=== PATIENT | female | born 1960 | race Caucasian/White ===

== ENCOUNTER 2017-05-05 08:23 | Outpatient (CLI) | payer OTHER ==
[~2017-05-05 08:23] MED LIST: ASPI-955; CHOL2000 PO; LEVO75TA7 PO; MULT-1074 PO; OMEG1CAP2; PROG100C16 PO; [UNRECOGNIZED DRUG - OTHER] PO
[2017-05-05] MEDS ORDERED: ROSU5TAB PO (09:10)
[2017-05-05 10:35] LABS: ALANINE AMINOTRANSFERASE 68 U/L (12-78); ALBUMIN 3.6 G/DL (3.4-5.0); ALBUMIN/GLOBULIN RATIO 1.2 (1.1-1.5); ALKALINE PHOSPHATASE 42 IU/L (46-116); ASPARTATE AMINO TRANSFERASE 32 U/L (10-37); BILIRUBIN,DIRECT 0.1 MG/DL (0-0.3); BILIRUBIN,TOTAL 0.3 MG/DL (0.1-1.0); CHOL/HDL RATIO 2.6 (0.00-4.99); CHOLESTEROL 126 MG/DL (0-200); HDL CHOLESTEROL 48 MG/DL (35-60); LDL CHOLESTEROL 69 MG/DL (50-100); TOTAL PROTEIN 6.5 G/DL (6.4-8.2); TRIGLYCERIDES 54 MG/DL (20-135)
== END 2017-05-05 23:59 | disposition home or self-care (01) ==
LOC: LAB 08:23
PROVIDERS: ATTEND Family Medicine
DX: E78.5 Hyperlipidemia, unspecified (principal); I10 Essential (primary) hypertension; F17.200 Nicotine dependence, unspecified, uncomplicated
CPT/HCPCS: 36415; 80061; 80076

== ENCOUNTER 2017-05-05 08:31 | Day surgery (SDC) | payer OTHER ==
[~2017-05-05] VITALS: Ht 162.6 cm; Wt 74.1 kg
[2017-05-05] MEDS ORDERED: ROSU5TAB PO (09:10)
[2017-05-05 09:14] VITALS: BP 159/95
[2017-05-05] MEDS ORDERED: fentaNYL/PF 50MCG/1 ML 2ML syringe ONE (09:25)
[2017-05-05] MEDS ORDERED: MIDAZolam 1mg/ml 10ml vial ONE (09:26)
[2017-05-05 10:12] VITALS: BP 126/82
[2017-05-05 10:22] VITALS: BP 143/87
[2017-05-05 10:32] VITALS: BP 146/81
[2017-05-05 10:42] VITALS: BP 140/72
== END 2017-05-05 10:45 | disposition home or self-care (01) ==
LOC: GI LAB 08:31
PROVIDERS: ATTEND Internal Medicine Gastroenterology
DX: Z09 Encounter for follow-up examination after completed treatment for conditions other than malignant neoplasm (principal); K57.30 Diverticulosis of large intestine without perforation or abscess without bleeding; Z87.19 Personal history of other diseases of the digestive system; F17.210 Nicotine dependence, cigarettes, uncomplicated; I48.91 Unspecified atrial fibrillation; I10 Essential (primary) hypertension; E78.5 Hyperlipidemia, unspecified
CPT/HCPCS: 45378; J2250; J3010; J7030; A4620; G0500

== ENCOUNTER 2017-07-08 12:57 | Outpatient (CLI) | payer OTHER ==
[~2017-07-08 12:57] MED LIST changes: -CHOL2000 PO; -MULT-1074 PO; -OMEG1CAP2; -PROG100C16 PO; +ROSU5TAB PO; -[UNRECOGNIZED DRUG - OTHER] PO
== END 2017-07-08 23:59 | disposition home or self-care (01) ==
LOC: RAD 12:57
PROVIDERS: ATTEND Family Medicine
DX: M25.462 Effusion, left knee (principal); M25.562 Pain in left knee
CPT/HCPCS: 73721

== ENCOUNTER 2017-08-02 07:48 | Outpatient (CLI) | payer OTHER ==
[~2017-08-02] VITALS: Ht 162.6 cm; Wt 73.0 kg
[2017-08-02] VITALS (8 sets, daily range): BP systolic 114–131; BP diastolic 61–82
[2017-08-02] MEDS ORDERED: nitroGLYCERIN 0.4mg SUBLingual tab SL PRN (08:50)
[2017-08-02] MEDS ORDERED: normal saline 500ml IV soln 500 ML IV ONE (08:50)
[2017-08-02] MEDS ORDERED: aminophylline 250mg/10ml inj. IV PRN (08:50)
[2017-08-02] MEDS ORDERED: regadenoson 0.4mg/5ml syringe IV ONE ×2 (08:50→09:40)
[2017-08-02] MEDS ORDERED: aminophylline inj. 10 ML IV ONE (09:40)
== END 2017-08-02 23:59 | disposition home or self-care (01) ==
LOC: RAD 07:48
PROVIDERS: ATTEND Physician Assistant
DX: Z01.810 Encounter for preprocedural cardiovascular examination (principal); R94.30 Abnormal result of cardiovascular function study, unspecified; I48.0 Paroxysmal atrial fibrillation; R94.31 Abnormal electrocardiogram [ECG] [EKG]; I10 Essential (primary) hypertension; E78.4 Other hyperlipidemia; R01.1 Cardiac murmur, unspecified
CPT/HCPCS: 78452; 93017; A9500; J0280; J7030

== ENCOUNTER 2017-09-12 06:51 | Outpatient (CLI) | payer OTHER ==
[2017-09-12 07:33] LABS: BASOPHILS % (AUTO) 0.7 % (0-1); CLARITY,URINE CLEAR (Clear); COLOR,URINE YELLOW (Yellow); EOSINOPHILS # (AUTO) 0.2 X10'3 (0-0.9); EOSINOPHILS % (AUTO) 4.4 % (0-6); GLUCOSE, URINE NEGATIVE (Neg); HEMATOCRIT 42.2 % (35.0-45.0); HEMOGLOBIN 14.5 g/dl (12.0-16.0); KETONES,URINE NEGATIVE (Neg); LEUKOCYTE ESTERASE ,URINE NEGATIVE (Neg); LYMPHOCYTES # (AUTO) 1.6 X10'3 (1.1-4.8); LYMPHOCYTES % (AUTO) 35.9 % (21-51); MEAN CORPUSCULAR HEMOGLOBIN 30.8 PG (27.0-31.0); MEAN CORPUSCULAR HGB CONC 34.4 % (33.0-36.5); MEAN CORPUSCULAR VOLUME 89.3 FL (78-98); MEAN PLATELET VOLUME 7.9 FL (7.4-10.4); MONOCYTES # (AUTO) 0.3 X10'3 (0-0.9); MONOCYTES % (AUTO) 7.2 % (2-12); NEUTROPHILS # (AUTO) 2.4 X10'3 (1.8-7.7); NEUTROPHILS % (AUTO) 51.8 % (42-75); NITRITES, URINE NEGATIVE (Neg); OCCULT BLOOD,URINE NEGATIVE (Neg); PLATELET COUNT 275 X10'3 (140-440); PROTEIN,URINE NEGATIVE (Neg); RED BLOOD COUNT 4.73 X10'6 (4.20-5.60); RED CELL DISTRIBUTION WIDTH 13.3 % (11.5-14.5); UROBILINOGEN,URINE 0.2 E.U/dL (0.2-1.0); WHITE BLOOD COUNT 4.6 X10'3 (4.5-11.0)
[2017-09-12 07:36] LABS: UA COLLECTION TYPE NON-SPECIFIED
[2017-09-12 07:54] LABS: ALANINE AMINOTRANSFERASE 47 U/L (12-78); ALBUMIN 3.9 G/DL (3.4-5.0); ALBUMIN/GLOBULIN RATIO 1.1 (1.1-1.5); ALKALINE PHOSPHATASE 61 IU/L (46-116); ANION GAP 5 (8-16); ASPARTATE AMINO TRANSFERASE 31 U/L (10-37); BILIRUBIN,TOTAL 0.4 MG/DL (0.1-1.0); BLOOD UREA NITROGEN 13 MG/DL (7-18); BUN/CREATININE RATIO 17.8 (6.6-38.0); CALCIUM 8.8 MG/DL (8.5-10.1); CHLORIDE 105 MMOL/L (99-107); CHOL/HDL RATIO 4.3 (0.00-4.99); CHOLESTEROL 205 MG/DL (0-200); CREATININE 0.73 MG/DL (0.40-0.90); GLUCOSE 108 MG/DL (70-104); HDL CHOLESTEROL 48 MG/DL (35-60); LDL CHOLESTEROL 132 MG/DL (50-100); POTASSIUM 3.9 MMOL/L (3.5-5.1); SODIUM 137 MMOL/L (135-145); TOTAL CARBON DIOXIDE 27.3 MMOL/L (24-32); TOTAL PROTEIN 7.4 G/DL (6.4-8.2); TRIGLYCERIDES 134 MG/DL (20-135); eGFR 82 ML/MIN
[2017-09-12 08:06] LABS: RHEUM FACTOR QUAL REFLEX TITER NEGATIVE (Neg)
[2017-09-15] MEDS ORDERED: ESTROGEN GEL TOP (16:45)
[2017-09-15] MEDS ORDERED: OMEG1CAP2 PO (16:45)
[2017-09-15] MEDS ORDERED: PROG100C6 PO (16:45)
[2017-09-15] MEDS ORDERED: [UNRECOGNIZED DRUG - OTHER] PO (16:45)
[2017-09-15] MEDS ORDERED: UBID50TA3 PO (16:45)
[2017-09-15] MEDS ORDERED: CHOL200016 PO (16:45)
[2017-09-16] MEDS ORDERED: LEVO75TA PO (12:48)
[2017-09-16] MEDS ORDERED: OMEG1CAP13 PO (12:50)
[2017-09-16] MEDS ORDERED: ASPI81TA52 PO (12:53)
== END 2017-09-12 23:59 | disposition home or self-care (01) ==
LOC: LAB 06:51
PROVIDERS: ATTEND Family Medicine
DX: Z00.01 Encounter for general adult medical examination with abnormal findings (principal); R79.89 Other specified abnormal findings of blood chemistry; Z87.891 Personal history of nicotine dependence
CPT/HCPCS: 36415; 80053; 80061; 81003; 84439; 84443; 84550; 85025; 85651; 86038; 86430

== ENCOUNTER 2017-09-19 06:03 | Day surgery (SDC) | payer OTHER ==
[2017-09-15 17:33] LABS: PRE OP INR 0.9 INR; PRE OP PROTIME 9.7 SECONDS (9.0-12.0)
[~2017-09-19] VITALS: Ht 162.6 cm; Wt 72.7 kg
[2017-09-19] VITALS (16 sets, daily range): BP systolic 108–145; BP diastolic 73–94
[~2017-09-19 06:03] MED LIST changes: -ASPI-955; +ASPI81TA52 PO; +CHOL200016 PO; +ESTROGEN GEL TOP; +LEVO75TA PO; -LEVO75TA7 PO; +OMEG1CAP13 PO; +PROG100C6 PO; -ROSU5TAB PO; +UBID50TA3 PO; +[UNRECOGNIZED DRUG - OTHER] PO; +ceFOXitin 2 GM ADDvantage bag 100 ML IV ONE; +famotidine 20mg tablet PO ONE; +ringers solution, lacted 1,000 ML IV SCH; +scopolamine 1.5mg patch.TD72 TD ONE
[2017-09-19] MEDS ORDERED: LIDOcaine 1% (10mg/ml) 2ml vial ONE (06:24)
[2017-09-19] MEDS ORDERED: morphine 10mg/ml inj. ONE (06:48)
[2017-09-19] MEDS ORDERED: clindamycin phosphate 40gm vag cream ONE (06:48)
[2017-09-19] MEDS ORDERED: LIDOcaine 1% 30ml preserv. free vial ONE ×2 (06:48→08:56)
[2017-09-19] MEDS ORDERED: BUPIVAcaine/PF 7.5mg/ml (0.75%) 10ml vial ONE (06:49)
[2017-09-19] MEDS ORDERED: ceFAZolin 1000mg inj ONE (06:49)
[2017-09-19] MEDS ORDERED: vasoPRESSIN 20 units/ml inj. ONE (06:49)
[2017-09-19] MEDS ORDERED: fentaNYL/PF 50MCG/1 ML 2ML syringe ONE (07:48)
[2017-09-19] MEDS ORDERED: ketamine 10mg/ml 20ml inj ONE (07:48)
[2017-09-19] MEDS ORDERED: midazolam 2 mg/2 ml injection ONE (07:49)
[2017-09-19] MEDS ORDERED: HYDROmorphone 1 mg/ml syringe ONE (07:49)
[2017-09-19] MEDS ORDERED: dexamethasone sod phosphate 4mg/ml inj. ONE (07:50)
[2017-09-19] MEDS ORDERED: ePHEDrine 50MG/ML INJ. ONE (07:50)
[2017-09-19] MEDS ORDERED: rocuronium 10mg/ml inj IV ONE (07:50)
[2017-09-19] MEDS ORDERED: ondansetron/PF 4mg/2ml inj ONE (07:50)
[2017-09-19] MEDS ORDERED: propofol inj 20 ML IV ONE (07:50)
[2017-09-19] MEDS ORDERED: sevoflurane 250ml liquid IH ONE (08:19)
[2017-09-19] MEDS ORDERED: neostigmine in sterile water inj 5 MG/5 ML syringe IJ ONE (08:19)
[2017-09-19] MEDS ORDERED: glycopyrrolate 0.2mg/ml inj ONE (08:19)
[2017-09-19] MEDS ORDERED: LIDOcaine 2% (20mg/ml) 5ml vial ONE (08:23)
[2017-09-19] MEDS ORDERED: ringers solution, lacted 1,000 ML IV ONE (09:08)
[2017-09-19] MEDS ORDERED: ondansetron/PF 4mg/2ml inj IV PRN ×2 (09:10→10:50)
[2017-09-19] MEDS ORDERED: fentaNYL/PF 50MCG/1 ML 2ML syringe IV PRN ×2 (09:10)
[2017-09-19] MEDS ORDERED: proMETHazine 25mg rectal suppository RC PRN (09:10)
[2017-09-19] MEDS ORDERED: hydrALAZINE 20mg/ml inj. IV PRN (09:10)
[2017-09-19] MEDS ORDERED: proCHLORperazine 10 MG/2 ml inj IV PRN (09:10)
[2017-09-19] MEDS ORDERED: labetalol 20mg/4ml (5mg/ml) syringe IV PRN (09:10)
[2017-09-19] MEDS ORDERED: meperidine/PF 25mg/ml syringe IV PRN (09:10)
[2017-09-19] MEDS ORDERED: HYDROmorphone inj. 0.5 MG/0.5 ML DISP.SYRIN IV PRN ×2 (09:10)
[2017-09-19] MEDS ORDERED: fluoroscein sod 10% (100mg/ml) 5ml vial ONE (10:18)
[2017-09-19] MEDS: ringers solution, lacted 1,000 ML IV SCH ×2 (10:48→20:17)
[2017-09-19] MEDS ORDERED: normal saline 500ml IV soln 500 ML IV PRN (10:50)
[2017-09-19] MEDS ORDERED: diphenhydrAMINE 50 mg/ml inj IV PRN (10:50)
[2017-09-19] MEDS ORDERED: naloxone 0.4 mg/ml inj IV PRN (10:50)
[2017-09-19] MEDS ORDERED: temazepam 15mg capsule PO PRN (10:50)
[2017-09-19] MEDS ORDERED: magnesium hydroxide 30ml (MOM) UD suspension PO PRN (10:50)
[2017-09-19] MEDS ORDERED: CADD PCA waste documentation MC PRN (10:50)
[2017-09-19] MEDS ORDERED: HYDROcodone/acetaminophen 5mg/325mg tablet PO PRN ×2 (10:50)
[2017-09-19] MEDS: HYDROmorphone/NS 1 mg/ml CADD 50 ML IV SCH ×7 (11:26→23:00)
[2017-09-19] MEDS: simethicone 80mg chew tab PO SCH ×2 (12:38→17:38)
[2017-09-19] MEDS: ketorolac trometh. 30mg/ml inj. IV PRN ×2 (15:15→21:49)
[2017-09-19] MEDS ORDERED: ESTR30GE TOP (18:26)
[2017-09-19] MEDS: docusate sod 100mg capsule PO SCH (20:17)
[2017-09-20] VITALS (16 sets, daily range): BP systolic 107–150; BP diastolic 62–100
[2017-09-20] MEDS: HYDROmorphone/NS 1 mg/ml CADD 50 ML IV SCH ×6 (01:00→11:00)
[2017-09-20] MEDS: ringers solution, lacted 1,000 ML IV SCH (02:48)
[2017-09-20 05:26] LABS: BASOPHILS % (AUTO) 0.2 % (0-1); EOSINOPHILS # (AUTO) 0.1 X10'3 (0-0.9); EOSINOPHILS % (AUTO) 1.5 % (0-6); HEMATOCRIT 34.2 % (35.0-45.0); HEMOGLOBIN 11.6 g/dl (12.0-16.0); LYMPHOCYTES # (AUTO) 1.4 X10'3 (1.1-4.8); LYMPHOCYTES % (AUTO) 17.7 % (21-51); MEAN CORPUSCULAR HEMOGLOBIN 30.4 PG (27.0-31.0); MEAN CORPUSCULAR HGB CONC 33.8 % (33.0-36.5); MEAN CORPUSCULAR VOLUME 90.1 FL (78-98); MEAN PLATELET VOLUME 7.6 FL (7.4-10.4); MONOCYTES # (AUTO) 0.6 X10'3 (0-0.9); MONOCYTES % (AUTO) 6.9 % (2-12); NEUTROPHILS # (AUTO) 5.9 X10'3 (1.8-7.7); NEUTROPHILS % (AUTO) 73.7 % (42-75); PLATELET COUNT 232 X10'3 (140-440); RED CELL DISTRIBUTION WIDTH 13.4 % (11.5-14.5)
[2017-09-20] MEDS ORDERED: levoTHYROXINE 75mcg tablet PO SCH (08:00)
[2017-09-20] MEDS: docusate sod 100mg capsule PO SCH ×2 (08:00→12:42)
[2017-09-20] MEDS: simethicone 80mg chew tab PO SCH ×2 (08:00→12:39)
[2017-09-20] MEDS ORDERED: midazolam 2 mg/2 ml injection ONE ×2 (08:04→08:19)
[2017-09-20] MEDS ORDERED: fentaNYL/PF 50MCG/1 ML 2ML syringe ONE ×2 (08:05→08:19)
[2017-09-20] MEDS ORDERED: propofol inj 20 ML IV ONE ×2 (08:06→08:19)
[2017-09-20] MEDS ORDERED: LIDOcaine 1%/PF (10mg/ml) 5ml vial ONE (08:06)
[2017-09-20] MEDS ORDERED: ROPIVAcaine 0.5% (5mg/ml) 30ml vial ONE (08:11)
[2017-09-20] MEDS ORDERED: clindamycin phosphate 40gm vag cream ONE (08:11)
[2017-09-20] MEDS ORDERED: LIDOcaine 1% 30ml preserv. free vial ONE (08:11)
[2017-09-20] MEDS ORDERED: LIDOcaine 2% (20mg/ml) 5ml vial ONE (08:19)
[2017-09-20] MEDS ORDERED: ringers solution, lacted 1,000 ML IV SCH (08:36)
[2017-09-20] MEDS ORDERED: ketamine 10mg/ml 20ml inj IV ONE (08:40)
[2017-09-20] MEDS ORDERED: ondansetron/PF 4mg/2ml inj IV PRN (08:40)
[2017-09-20] MEDS: ketorolac trometh. 30mg/ml inj. IV PRN ×2 (10:29→16:40)
== END 2017-09-20 16:53 | disposition home or self-care (01) ==
LOC: PRE-OP 06:03 → SUR 3N 10:48 → PAS 09-20 16:53
PROVIDERS: ATTEND Specialist
DX: D25.0 Submucous leiomyoma of uterus (principal); N80.0 Endometriosis of uterus; N88.8 Other specified noninflammatory disorders of cervix uteri; L85.9 Epidermal thickening, unspecified; N99.820 Postprocedural hemorrhage of a genitourinary system organ or structure following a genitourinary system procedure; F32.9 Major depressive disorder, single episode, unspecified; E78.5 Hyperlipidemia, unspecified; E03.9 Hypothyroidism, unspecified; M19.90 Unspecified osteoarthritis, unspecified site; Z72.89 Other problems related to lifestyle; I10 Essential (primary) hypertension; I48.0 Paroxysmal atrial fibrillation; Z79.2 Long term (current) use of antibiotics; Z79.82 Long term (current) use of aspirin; Z79.891 Long term (current) use of opiate analgesic; Z98.41 Cataract extraction status, right eye; Z96.641 Presence of right artificial hip joint; Z87.891 Personal history of nicotine dependence; Z98.42 Cataract extraction status, left eye; Z98.890 Other specified postprocedural states; Z79.899 Other long term (current) drug therapy
CPT/HCPCS: 36415; 57210; 57240; 57283; 57288; 58552; 84443; 85025; 85610; 85730; 86885; 86900; 86901; A4315; A4353; A4355; A6255; C1771; J0690; J0694; J1100; J1170; J1885; J2001; J2250; J2270; J2405; J2704; J2710; J3010; J3490; J7030; J7120; A6250; A7000; J2795

== ENCOUNTER 2017-12-22 19:27 | Emergency (ER) | payer BC, OTHER ==
[~2017-12-22] VITALS: Ht 162.6 cm; Wt 72.7 kg
[~2017-12-22 19:27] MED LIST changes: -CHOL200016 PO; +CHOL200052 PO; +ESTR30GE TOP; -ESTROGEN GEL TOP; -ceFOXitin 2 GM ADDvantage bag 100 ML IV ONE; -famotidine 20mg tablet PO ONE; -ringers solution, lacted 1,000 ML IV SCH; -scopolamine 1.5mg patch.TD72 TD ONE
[2017-12-22 19:30] VITALS: BP 175/99
[2017-12-22] MEDS ORDERED: LIDOcaine 1% 30ml preserv. free vial IJ ONE (20:15)
[2017-12-22] MEDS ORDERED: TETanus/Pertussis (Acell)/Diphther VAC/PF (Tdap-Adult) 0.5ml syringe IM ONE (20:20)
== END 2017-12-22 21:00 | disposition home or self-care (01) ==
LOC: ER 19:28
DX: S61.211A Laceration without foreign body of left index finger without damage to nail, initial encounter (principal); J45.909 Unspecified asthma, uncomplicated; Z98.890 Other specified postprocedural states; W26.8XXA Contact with other sharp object(s), not elsewhere classified, initial encounter; Y93.H2 Activity, gardening and landscaping; Y92.89 Other specified places as the place of occurrence of the external cause; Y99.8 Other external cause status
CPT/HCPCS: 12001; 90471; 90715; 99283; J3490

== ENCOUNTER 2017-12-23 04:47 | Emergency (ER) | payer BC ==
[~2017-12-23] VITALS: Ht 162.6 cm; Wt 72.0 kg
[2017-12-23 05:24] LABS: BASOPHILS % (AUTO) 0.8 % (0-1); EOSINOPHILS # (AUTO) 0.1 X10'3 (0-0.9); EOSINOPHILS % (AUTO) 2.7 % (0-6); HEMATOCRIT 43.6 % (35.0-45.0); HEMOGLOBIN 15.1 g/dl (12.0-16.0); LYMPHOCYTES # (AUTO) 1.9 X10'3 (1.1-4.8); LYMPHOCYTES % (AUTO) 41.2 % (21-51); MEAN CORPUSCULAR HEMOGLOBIN 30.6 PG (27.0-31.0); MEAN CORPUSCULAR HGB CONC 34.6 % (33.0-36.5); MEAN CORPUSCULAR VOLUME 88.3 FL (78-98); MEAN PLATELET VOLUME 7.9 FL (7.4-10.4); MONOCYTES # (AUTO) 0.4 X10'3 (0-0.9); MONOCYTES % (AUTO) 8.7 % (2-12); NEUTROPHILS # (AUTO) 2.1 X10'3 (1.8-7.7); NEUTROPHILS % (AUTO) 46.6 % (42-75); PLATELET COUNT 256 X10'3 (140-440); RED BLOOD COUNT 4.93 X10'6 (4.20-5.60); WHITE BLOOD COUNT 4.6 X10'3 (4.5-11.0)
[2017-12-23 05:37] LABS: ALANINE AMINOTRANSFERASE 92 U/L (12-78); ALBUMIN 3.8 G/DL (3.4-5.0); ALBUMIN/GLOBULIN RATIO 1.1 (1.1-1.5); ALKALINE PHOSPHATASE 62 IU/L (46-116); ANION GAP 13 (8-16); ASPARTATE AMINO TRANSFERASE 51 U/L (10-37); BILIRUBIN,TOTAL 0.2 MG/DL (0.1-1.0); BLOOD UREA NITROGEN 27 MG/DL (7-18); BUN/CREATININE RATIO 33.8 (6.6-38.0); CALCIUM 9.2 MG/DL (8.5-10.1); CHLORIDE 104 MMOL/L (99-107); GLUCOSE 100 MG/DL (70-104); POTASSIUM 3.9 MMOL/L (3.5-5.1); SODIUM 138 MMOL/L (135-145); TOTAL CARBON DIOXIDE 21.5 MMOL/L (24-32); TOTAL PROTEIN 7.2 G/DL (6.4-8.2); eGFR 73 ML/MIN
[2017-12-23 05:44] LABS: MAGNESIUM 2.1 MG/DL (1.5-2.4)
[2017-12-23 09:36] VITALS: BP 135/77
== END 2017-12-23 09:57 | disposition home or self-care (01) ==
LOC: ER 04:48
DX: R07.89 Other chest pain (principal); J45.909 Unspecified asthma, uncomplicated; F17.200 Nicotine dependence, unspecified, uncomplicated; Z98.890 Other specified postprocedural states; Z79.82 Long term (current) use of aspirin; Z79.899 Other long term (current) drug therapy
CPT/HCPCS: 36415; 71045; 80053; 83735; 83880; 84484; 85025; 93005; 99285

== ENCOUNTER 2018-04-09 14:33 | Emergency (ER) | payer BC, OTHER ==
[~2018-04-09] VITALS: Ht 162.6 cm; Wt 75.8 kg
[2018-04-09 14:35] VITALS: BP 163/95
[2018-04-09 15:43] LABS: BASOPHILS % (AUTO) 0.6 % (0-1); EOSINOPHILS # (AUTO) 0.1 X10'3 (0-0.9); EOSINOPHILS % (AUTO) 2.2 % (0-6); HEMATOCRIT 45.9 % (35.0-45.0); HEMOGLOBIN 14.9 g/dl (12.0-16.0); LYMPHOCYTES # (AUTO) 1.4 X10'3 (1.1-4.8); LYMPHOCYTES % (AUTO) 28.4 % (21-51); MEAN CORPUSCULAR HEMOGLOBIN 29.9 PG (27.0-31.0); MEAN CORPUSCULAR HGB CONC 32.6 % (33.0-36.5); MEAN CORPUSCULAR VOLUME 91.7 FL (78-98); MEAN PLATELET VOLUME 7.1 FL (7.4-10.4); MONOCYTES # (AUTO) 0.3 X10'3 (0-0.9); MONOCYTES % (AUTO) 5.9 % (2-12); NEUTROPHILS % (AUTO) 62.9 % (42-75); PLATELET COUNT 279 X10'3 (140-440); RED CELL DISTRIBUTION WIDTH 12.2 % (11.5-14.5); WHITE BLOOD COUNT 4.8 X10'3 (4.5-11.0)
[2018-04-09 15:58] LABS: ALANINE AMINOTRANSFERASE 73 U/L (12-78); ALBUMIN 3.7 G/DL (3.4-5.0); ALBUMIN/GLOBULIN RATIO 1.1 (1.1-1.5); ALKALINE PHOSPHATASE 50 IU/L (46-116); ANION GAP 10 (8-16); ASPARTATE AMINO TRANSFERASE 34 U/L (10-37); BILIRUBIN,TOTAL 0.3 MG/DL (0.1-1.0); BLOOD UREA NITROGEN 12 MG/DL (7-18); BUN/CREATININE RATIO 15.2 (6.6-38.0); CALCIUM 8.8 MG/DL (8.5-10.1); CHLORIDE 102 MMOL/L (99-107); CREATININE 0.79 MG/DL (0.40-0.90); GLUCOSE 144 MG/DL (70-104); POTASSIUM 3.6 MMOL/L (3.5-5.1); SODIUM 139 MMOL/L (135-145); TOTAL PROTEIN 7.2 G/DL (6.4-8.2); eGFR 74 ML/MIN
[2018-04-09 16:08] LABS: PARTIAL THROMBOPLASTIN TIME 27 SECONDS (22-32); PROTHROMBIN TIME 10.3 SECONDS (9.0-12.0)
== END 2018-04-09 16:35 | disposition home or self-care (01) ==
LOC: ER 14:34
DX: I49.9 Cardiac arrhythmia, unspecified (principal); I48.91 Unspecified atrial fibrillation; J45.909 Unspecified asthma, uncomplicated; Z98.890 Other specified postprocedural states; Z79.82 Long term (current) use of aspirin; Z79.899 Other long term (current) drug therapy
CPT/HCPCS: 36415; 80053; 84484; 85025; 85610; 85730; 93005; 99284

== ENCOUNTER 2018-05-16 12:54 | Outpatient (CLI) | payer OTHER | END 2018-05-16 23:59 | disposition home or self-care (01) | LOC: CARD DIAG 12:54 | PROVIDERS: ATTEND Internal Medicine Interventional Cardiology | DX: I34.0 Nonrheumatic mitral (valve) insufficiency (principal); I48.91 Unspecified atrial fibrillation; I10 Essential (primary) hypertension; Z96.641 Presence of right artificial hip joint; Z79.82 Long term (current) use of aspirin; Z72.89 Other problems related to lifestyle; Z87.891 Personal history of nicotine dependence | CPT/HCPCS: 93306 ==

== ENCOUNTER 2018-07-10 05:05 | Day surgery (SDC) | payer OTHER ==
[2018-07-07 16:09] LABS: ALBUMIN 3.7 G/DL (3.4-5.0); ANION GAP 8 (8-16); BLOOD UREA NITROGEN 25 MG/DL (7-18); BUN/CREATININE RATIO 42.4 (6.6-38.0); CALCIUM 9.2 MG/DL (8.5-10.1); CHLORIDE 105 MMOL/L (99-107); CREATININE 0.59 MG/DL (0.40-0.90); GLUCOSE 83 MG/DL (70-104); POTASSIUM 4.1 MMOL/L (3.5-5.1); SODIUM 140 MMOL/L (135-145); TOTAL CARBON DIOXIDE 27.3 MMOL/L (24-32); eGFR > 90 ML/MIN
[2018-07-07 16:10] LABS: BASOPHILS # (AUTO) 0.1 X10'3 (0-0.2); EOSINOPHILS # (AUTO) 0.1 X10'3 (0-0.9); EOSINOPHILS % (AUTO) 2.7 % (0-6); HEMATOCRIT 40.6 % (35.0-45.0); HEMOGLOBIN 13.7 g/dl (12.0-16.0); LYMPHOCYTES # (AUTO) 1.9 X10'3 (1.1-4.8); LYMPHOCYTES % (AUTO) 35.3 % (21-51); MEAN CORPUSCULAR HEMOGLOBIN 30.5 PG (27.0-31.0); MEAN CORPUSCULAR HGB CONC 33.6 g/dL (33.0-36.5); MEAN CORPUSCULAR VOLUME 90.6 FL (78-98); MEAN PLATELET VOLUME 7.9 FL (7.4-10.4); MONOCYTES # (AUTO) 0.5 X10'3 (0-0.9); MONOCYTES % (AUTO) 8.6 % (2-12); NEUTROPHILS # (AUTO) 2.8 X10'3 (1.8-7.7); NEUTROPHILS % (AUTO) 52.4 % (42-75); PLATELET COUNT 262 X10'3 (140-440); RED BLOOD COUNT 4.49 X10'6 (4.20-5.60); RED CELL DISTRIBUTION WIDTH 13.6 % (11.5-14.5); WHITE BLOOD COUNT 5.3 X10'3 (4.5-11.0)
[2018-07-07 16:14] LABS: PARTIAL THROMBOPLASTIN TIME 27 SECONDS (22-32); PROTHROMBIN TIME 9.8 SECONDS (9.0-12.0)
[2018-07-10] VITALS (9 sets, daily range): BP systolic 103–149; BP diastolic 61–97
[~2018-07-10] VITALS: Ht 162.6 cm; Wt 75.0 kg
[2018-07-10] MEDS ORDERED: MULT-1085 PO (05:38)
[2018-07-10] MEDS ORDERED: ROSU5TAB11 (05:38)
[2018-07-10] MEDS ORDERED: ESTR1TAB19 PO (05:38)
[2018-07-10] MEDS ORDERED: METO50TA7 PO (05:38)
[2018-07-10] MEDS ORDERED: diphenhydrAMINE 25mg capsule PO PRN (05:50)
[2018-07-10] MEDS ORDERED: LORazepam 0.5 MG tablet PO PRN (05:50)
[2018-07-10] MEDS ORDERED: normal saline 1,000 ML IV SCH (05:50)
[2018-07-10] MEDS ORDERED: LIDOcaine/PRILOcaine 5gm cream TP ONE (05:55)
[2018-07-10] MEDS ORDERED: fentaNYL/PF 50MCG/1 ML 2ML syringe ONE (05:57)
[2018-07-10] MEDS ORDERED: iohexol 350MG/ML 100ml bottle IV ONE (05:57)
[2018-07-10] MEDS ORDERED: midazolam 2 mg/2 ml injection ONE (05:57)
[2018-07-10] MEDS ORDERED: LIDOcaine 1% (10mg/ml)w/preservative injection 20ml MDV ONE (05:57)
[2018-07-10] MEDS ORDERED: verapamil 2.5 mg/ml inj IV ONE (05:59)
[2018-07-10] MEDS ORDERED: nitroGLYCERIN-Tridil 50MG/D5W 250 ML IV ONE (05:59)
[2018-07-10] MEDS ORDERED: heparin 1,000unit/ml 10ml vial 10 ML ONE (05:59)
[2018-07-10] MEDS ORDERED: proCHLORperazine 10 MG/2 ml inj IV PRN (07:30)
[2018-07-10] MEDS ORDERED: OXAZEpam 15mg capsule PO PRN (07:30)
[2018-07-10] MEDS ORDERED: ondansetron/PF 4mg/2ml inj IV PRN (07:30)
[2018-07-10] MEDS ORDERED: pneumococcal 23-VAL P-sac vacc 25 mcg/0.5ml vial IMVAC ONE (08:00)
== END 2018-07-10 09:15 | disposition home or self-care (01) ==
LOC: SSTAY O 05:05
PROVIDERS: ATTEND Internal Medicine Interventional Cardiology
DX: I25.10 Atherosclerotic heart disease of native coronary artery without angina pectoris (principal); I48.91 Unspecified atrial fibrillation; I10 Essential (primary) hypertension; Z23 Encounter for immunization; E03.9 Hypothyroidism, unspecified
CPT/HCPCS: 36415; 80048; 85025; 85610; 85730; 90732; 93005; 93458; 99152; J1644; J2001; J2250; J3010; J7030; Q9967; A4620; C1769; J3490

== ENCOUNTER 2018-11-06 06:23 | Outpatient (CLI) | payer OTHER ==
[~2018-11-06 06:23] MED LIST changes: +ESTR1TAB19 PO; -ESTR30GE TOP; +METO50TA7 PO; +MULT-1085 PO; -PROG100C6 PO; +ROSU5TAB12 PO
[2018-11-06 06:58] LABS: CLARITY,URINE CLEAR (Clear); COLOR,URINE YELLOW (Yellow); GLUCOSE, URINE NEGATIVE (Neg); KETONES,URINE NEGATIVE (Neg); LEUKOCYTE ESTERASE ,URINE NEGATIVE (Neg); NITRITES, URINE NEGATIVE (Neg); OCCULT BLOOD,URINE NEGATIVE (Neg); PROTEIN,URINE NEGATIVE (Neg); UROBILINOGEN,URINE 0.2 E.U/dL (0.2-1.0)
[2018-11-06 07:03] LABS: BASOPHILS # (AUTO) 0.1 X10'3 (0-0.2); BASOPHILS % (AUTO) 0.9 % (0-1); EOSINOPHILS # (AUTO) 0.2 X10'3 (0-0.9); EOSINOPHILS % (AUTO) 3.4 % (0-6); HEMATOCRIT 43.6 % (35.0-45.0); HEMOGLOBIN 14.8 g/dl (12.0-16.0); LYMPHOCYTES % (AUTO) 34.8 % (21-51); MEAN CORPUSCULAR HGB CONC 33.8 g/dL (33.0-36.5); MEAN CORPUSCULAR VOLUME 91.5 FL (78-98); MEAN PLATELET VOLUME 8.1 FL (7.4-10.4); MONOCYTES # (AUTO) 0.5 X10'3 (0-0.9); MONOCYTES % (AUTO) 8.6 % (2-12); NEUTROPHILS # (AUTO) 3.1 X10'3 (1.8-7.7); NEUTROPHILS % (AUTO) 52.3 % (42-75); PLATELET COUNT 249 X10'3 (140-440); RED BLOOD COUNT 4.77 X10'6 (4.20-5.60); WHITE BLOOD COUNT 5.9 X10'3 (4.5-11.0)
[2018-11-06 07:07] LABS: UA COLLECTION TYPE CLN CATCH MIDSTREAM
[2018-11-06 07:32] LABS: HEMOGLOBIN A1C 5.8 % (4.5-6.2)
[2018-11-06 07:33] LABS: ALANINE AMINOTRANSFERASE 43 U/L (12-78); ALBUMIN 3.8 G/DL (3.4-5.0); ALBUMIN/GLOBULIN RATIO 1.1 (1.1-1.5); ALKALINE PHOSPHATASE 46 IU/L (46-116); ANION GAP 10 (8-16); ASPARTATE AMINO TRANSFERASE 23 U/L (10-37); BILIRUBIN,TOTAL 0.4 MG/DL (0.1-1.0); BLOOD UREA NITROGEN 18 MG/DL (7-18); BUN/CREATININE RATIO 26.5 (6.6-38.0); CALCIUM 8.9 MG/DL (8.5-10.1); CHLORIDE 105 MMOL/L (99-107); CHOL/HDL RATIO 3.4 (0.00-4.99); CHOLESTEROL 161 MG/DL (0-200); CREATININE 0.68 MG/DL (0.40-0.90); GLUCOSE 101 MG/DL (70-104); HDL CHOLESTEROL 48 MG/DL (35-60); LDL CHOLESTEROL 96 MG/DL (50-100); POTASSIUM 4.3 MMOL/L (3.5-5.1); SODIUM 142 MMOL/L (135-145); TOTAL CARBON DIOXIDE 27.2 MMOL/L (24-32); TOTAL PROTEIN 7.3 G/DL (6.4-8.2); TRIGLYCERIDES 113 MG/DL (20-135); eGFR 88 ML/MIN
[2018-11-06 08:51] LABS: BILIRUBIN,DIRECT 0.1 MG/DL (0-0.3)
[2018-12-19] MEDS ORDERED: LORATADINE PO (15:04)
[2018-12-19] MEDS ORDERED: [UNRECOGNIZED DRUG - OTHER] PO (15:04)
[2018-12-19] MEDS ORDERED: HYDR-3686 PO (15:04)
== END 2018-11-06 23:59 | disposition home or self-care (01) ==
LOC: LAB 06:23
PROVIDERS: ATTEND Family Medicine
DX: Z00.00 Encounter for general adult medical examination without abnormal findings (principal); Z87.891 Personal history of nicotine dependence
CPT/HCPCS: 36415; 80053; 80061; 81003; 82248; 83036; 84439; 84443; 85025

== ENCOUNTER 2018-12-20 18:38 | Day surgery (SDC) | payer OTHER ==
[2018-12-19 15:25] LABS: BASOPHILS % (AUTO) 0.9 % (0-1); EOSINOPHILS # (AUTO) 0.2 X10'3 (0-0.9); EOSINOPHILS % (AUTO) 3.4 % (0-6); LYMPHOCYTES # (AUTO) 1.9 X10'3 (1.1-4.8); LYMPHOCYTES % (AUTO) 36.9 % (21-51); MEAN CORPUSCULAR HEMOGLOBIN 30.6 PG (27.0-31.0); MEAN CORPUSCULAR HGB CONC 33.7 g/dL (33.0-36.5); MEAN CORPUSCULAR VOLUME 90.8 FL (78-98); MONOCYTES # (AUTO) 0.5 X10'3 (0-0.9); MONOCYTES % (AUTO) 8.7 % (2-12); NEUTROPHILS # (AUTO) 2.6 X10'3 (1.8-7.7); NEUTROPHILS % (AUTO) 50.1 % (42-75); PRE OP HEMATOCRIT 42.7 % (35.0-45.0); PRE OP HEMOGLOBIN 14.4 g/dL (12.0-16.0); PRE OP PLATELET COUNT 267 X10'3 (140-440); RED CELL DISTRIBUTION WIDTH 12.6 % (11.5-14.5)
[2018-12-19 15:51] LABS: ALBUMIN/GLOBULIN RATIO 1.1 (1.1-1.5); ALKALINE PHOSPHATASE 49 IU/L (46-116); BLOOD UREA NITROGEN 20 MG/DL (7-18); BUN/CREATININE RATIO 28.6 (6.6-38.0); CALCIUM 9.2 MG/DL (8.5-10.1); CHLORIDE 105 MMOL/L (99-107); PRE OP ALT 38 U/L (30-65); PRE OP ANION GAP 7 (8-16); PRE OP AST 26 U/L (10-37); PRE OP BILIRUB, TOTAL 0.2 MG/DL (0.0-1.0); PRE OP GLUCOSE 94 MG/DL (70-104); PRE OP POTASSIUM 4.3 MMOL/L (3.4-5.1); PRE OP SODIUM 143 MMOL/L (135-145); TOTAL CARBON DIOXIDE 30.9 MMOL/L (24-32); TOTAL PROTEIN 7.7 G/DL (6.4-8.2); eGFR 85 ML/MIN
[~2018-12-20] VITALS: Ht 162.6 cm; Wt 76.5 kg
[2018-12-20] VITALS (10 sets, daily range): BP systolic 129–158; BP diastolic 83–98
--- NOTE | 2018-12-20 15:36 | NUR ---
#22 JELCO SALINE LOCK INSERTED IN L FOOT WITHOUT INCIDENT, (FOR JOHNNA BLOCK)
--- NOTE | 2018-12-20 17:18 | NUR ---
Received from OR via [facility], accompanied by Anesthesiologist DR FERRIS and report given by Anesthesiologist. PT DENIES PAIN, LEFT FOOT/ANKLE W/MERLINE WRAP COVERING DRSG, CDI, TOES PWD, SAWMI[place] OR [employer]ARD [employer] 1-2 SECONDS. Addendum: 12/20/18 at 1746 by Iliana Fagan RN Amended: Links added.
[~2018-12-20 18:38] MED LIST changes: +HYDR-3686 PO; +LIDOcaine 0.5% (5mg/ml) 50ml vial ONE; +LIDOcaine 1%/PF 5ML 10 MG/ML VIAL ONE; +LORATADINE PO; -METO50TA7 PO; -MULT-1085 PO; -UBID50TA3 PO; +[UNRECOGNIZED DRUG - OTHER] PO; +ceFAZolin 1000mg inj ONE; +cefazolin/dext.iso 2gm/50ml 50 ML IV ONE; +famotidine 20mg tablet PO ONE; +fentaNYL /PF 50mcg/ml 5ml ampule ONE; +ketamine 50mg/5ml syringe ONE; +labetalol 20mg/4ml (5mg/ml) syringe IV ONE; +meperidine/PF 25mg/ml syringe IV PRN; +midazolam 2 mg/2 ml injection ONE; +morphine 4 MG/ML inj SYRINge IV PRN; +ondansetron/PF 4mg/2ml inj IV PRN; +proCHLORperazine 10 MG/2 ml inj IV PRN; +propofol inj 20 ML IV ONE; +ringers solution, lacted 1,000 ML IV SCH
--- NOTE | 2018-12-20 18:38 | NUR ---
D/C INSTRUCTIONS GIVEN AND GONE OVER W/PT, PT VERBALIZES UNDERSTANDING, PT D/CD TO HOME VIA W/C TO PRIVATE VEHICLE W/O INCIDENT. Addendum: 12/20/18 at 1900 by Iliana Fagan RN Amended: Links added.
== END 2018-12-20 18:39 | disposition home or self-care (01) ==
LOC: PAS 18:38
PROVIDERS: ATTEND Orthopaedic Surgery
DX: S92.352A Displaced fracture of fifth metatarsal bone, left foot, initial encounter for closed fracture (principal); G47.30 Sleep apnea, unspecified; F32.9 Major depressive disorder, single episode, unspecified; E03.9 Hypothyroidism, unspecified; F17.210 Nicotine dependence, cigarettes, uncomplicated; Z98.890 Other specified postprocedural states; Z96.642 Presence of left artificial hip joint; Z79.899 Other long term (current) drug therapy; X58.XXXA Exposure to other specified factors, initial encounter; Y93.89 Activity, other specified; Y92.89 Other specified places as the place of occurrence of the external cause; Y99.8 Other external cause status
CPT/HCPCS: 28485; 36415; 80053; 82948; 85025; C1713; J0690; J2001; J2250; J2704; J3010; A4215; A6449; A7000; J3490; J7120

== ENCOUNTER 2019-01-29 12:40 | Outpatient (CLI) | payer OTHER ==
[~2019-01-29 12:40] MED LIST changes: -LIDOcaine 0.5% (5mg/ml) 50ml vial ONE; -LIDOcaine 1%/PF 5ML 10 MG/ML VIAL ONE; -ceFAZolin 1000mg inj ONE; -cefazolin/dext.iso 2gm/50ml 50 ML IV ONE; -famotidine 20mg tablet PO ONE; -fentaNYL /PF 50mcg/ml 5ml ampule ONE; -ketamine 50mg/5ml syringe ONE; -labetalol 20mg/4ml (5mg/ml) syringe IV ONE; -meperidine/PF 25mg/ml syringe IV PRN; -midazolam 2 mg/2 ml injection ONE; -morphine 4 MG/ML inj SYRINge IV PRN; -ondansetron/PF 4mg/2ml inj IV PRN; -proCHLORperazine 10 MG/2 ml inj IV PRN; -propofol inj 20 ML IV ONE; -ringers solution, lacted 1,000 ML IV SCH
== END 2019-01-29 23:59 | disposition home or self-care (01) ==
LOC: RAD 12:40
PROVIDERS: ATTEND Orthopaedic Surgery
DX: S92.352D Displaced fracture of fifth metatarsal bone, left foot, subsequent encounter for fracture with routine healing (principal); X58.XXXD Exposure to other specified factors, subsequent encounter
CPT/HCPCS: 73620

== ENCOUNTER 2019-02-28 14:03 | Outpatient (CLI) | payer OTHER | END 2019-02-28 23:59 | disposition home or self-care (01) | LOC: RAD 14:03 | PROVIDERS: ATTEND Orthopaedic Surgery | DX: S92.352D Displaced fracture of fifth metatarsal bone, left foot, subsequent encounter for fracture with routine healing (principal); M77.32 Calcaneal spur, left foot; Z87.891 Personal history of nicotine dependence; Z96.641 Presence of right artificial hip joint; X58.XXXD Exposure to other specified factors, subsequent encounter | CPT/HCPCS: 73630 ==

== ENCOUNTER 2019-05-04 05:54 | Outpatient (CLI) | payer OTHER ==
[2019-05-04 07:38] LABS: ALANINE AMINOTRANSFERASE 30 U/L (12-78); ALBUMIN 3.9 G/DL (3.4-5.0); ALBUMIN/GLOBULIN RATIO 1.1 (1.1-1.5); ALKALINE PHOSPHATASE 51 IU/L (46-116); ANION GAP 9 (8-16); ASPARTATE AMINO TRANSFERASE 19 U/L (10-37); BILIRUBIN,TOTAL 0.3 MG/DL (0.1-1.0); BLOOD UREA NITROGEN 18 MG/DL (7-18); BUN/CREATININE RATIO 25.7 (6.6-38.0); CALCIUM 8.8 MG/DL (8.5-10.1); CHLORIDE 104 MMOL/L (99-107); CHOL/HDL RATIO 3.5 (0.00-4.99); CHOLESTEROL 151 MG/DL (0-200); GLUCOSE 111 MG/DL (70-104); HDL CHOLESTEROL 43 MG/DL (35-60); LDL CHOLESTEROL 85 MG/DL (50-100); POTASSIUM 4.3 MMOL/L (3.5-5.1); SODIUM 141 MMOL/L (135-145); TOTAL CARBON DIOXIDE 28.2 MMOL/L (24-32); TOTAL PROTEIN 7.3 G/DL (6.4-8.2); TRIGLYCERIDES 165 MG/DL (20-135); eGFR 85 ML/MIN
== END 2019-05-04 23:59 | disposition home or self-care (01) ==
LOC: LAB 05:54
PROVIDERS: ATTEND Internal Medicine Interventional Cardiology
DX: E78.5 Hyperlipidemia, unspecified (principal); I48.0 Paroxysmal atrial fibrillation
CPT/HCPCS: 36415; 80053; 80061

== ENCOUNTER 2019-12-11 11:19 | Outpatient (CLI) | payer OTHER ==
[2019-12-11 11:47] LABS: BASOPHILS # (AUTO) 0.1 X10'3 (0-0.2); BASOPHILS % (AUTO) 1.2 % (0-1); EOSINOPHILS # (AUTO) 0.1 X10'3 (0-0.9); EOSINOPHILS % (AUTO) 2.5 % (0-6); HEMOGLOBIN 15.1 g/dl (12.0-16.0); LYMPHOCYTES % (AUTO) 39.6 % (21-51); MEAN CORPUSCULAR HEMOGLOBIN 30.4 PG (27.0-31.0); MEAN CORPUSCULAR HGB CONC 33.5 g/dL (33.0-36.5); MEAN CORPUSCULAR VOLUME 90.8 FL (78-98); MEAN PLATELET VOLUME 7.5 FL (7.4-10.4); MONOCYTES # (AUTO) 0.4 X10'3 (0-0.9); MONOCYTES % (AUTO) 8.1 % (2-12); NEUTROPHILS # (AUTO) 2.5 X10'3 (1.8-7.7); NEUTROPHILS % (AUTO) 48.6 % (42-75); PLATELET COUNT 285 X10'3 (140-440); RED BLOOD COUNT 4.96 X10'6 (4.20-5.60); RED CELL DISTRIBUTION WIDTH 13.2 % (11.5-14.5); WHITE BLOOD COUNT 5.1 X10'3 (4.5-11.0)
[2019-12-11 11:49] LABS: CLARITY,URINE CLEAR (Clear); COLOR,URINE YELLOW (Yellow); GLUCOSE, URINE NEGATIVE (Neg); KETONES,URINE NEGATIVE (Neg); LEUKOCYTE ESTERASE ,URINE NEGATIVE (Neg); NITRITES, URINE NEGATIVE (Neg); OCCULT BLOOD,URINE NEGATIVE (Neg); PH,URINE 6.5 (4.8-8.0); PROTEIN,URINE NEGATIVE (Neg); UROBILINOGEN,URINE 0.2 E.U/dL (0.2-1.0)
[2019-12-11 11:51] LABS: UA COLLECTION TYPE CLN CATCH MIDSTREAM
[2019-12-11 12:19] LABS: ALANINE AMINOTRANSFERASE 29 U/L (12-78); ALBUMIN 4.2 G/DL (3.4-5.0); ALBUMIN/GLOBULIN RATIO 1.2 (1.1-1.5); ALKALINE PHOSPHATASE 49 IU/L (46-116); ANION GAP 6 (8-16); ASPARTATE AMINO TRANSFERASE 23 U/L (10-37); BILIRUBIN,TOTAL 0.4 MG/DL (0.1-1.0); BLOOD UREA NITROGEN 20 MG/DL (7-18); BUN/CREATININE RATIO 27.4 (6.6-38.0); CHLORIDE 101 MMOL/L (99-107); CHOL/HDL RATIO 3.8 (0.00-4.99); CHOLESTEROL 183 MG/DL (0-200); CREATININE 0.73 MG/DL (0.40-0.90); GLUCOSE 94 MG/DL (70-104); HDL CHOLESTEROL 48 MG/DL (35-60); LDL CHOLESTEROL 108 MG/DL (50-100); POTASSIUM 4.1 MMOL/L (3.5-5.1); SODIUM 136 MMOL/L (135-145); TOTAL CARBON DIOXIDE 28.8 MMOL/L (24-32); TOTAL PROTEIN 7.8 G/DL (6.4-8.2); TRIGLYCERIDES 172 MG/DL (20-135); eGFR 81 ML/MIN
== END 2019-12-11 23:59 | disposition home or self-care (01) ==
LOC: LAB 11:19
PROVIDERS: ATTEND Family Medicine
DX: Z00.00 Encounter for general adult medical examination without abnormal findings (principal)
CPT/HCPCS: 36415; 80053; 80061; 81003; 84439; 84443; 85025

== ENCOUNTER 2020-03-25 15:25 | Outpatient (CLI) | payer BC | END 2020-03-25 23:59 | disposition home or self-care (01) | LOC: EEVIPCON 15:25 → LAB 15:25 | PROVIDERS: ATTEND Otolaryngology | DX: J30.1 Allergic rhinitis due to pollen (principal) | CPT/HCPCS: 36415; 82785; 86003 ==

== ENCOUNTER 2020-04-17 14:52 | Outpatient (CLI) | payer BC | END 2020-04-17 23:59 | disposition home or self-care (01) | LOC: RAD 14:52 → EEVIPCON 14:52 → RAD 23:59 | PROVIDERS: ATTEND Family Medicine | DX: R07.9 Chest pain, unspecified (principal) | CPT/HCPCS: 93005 ==

== ENCOUNTER 2020-05-07 13:46 | Outpatient (CLI) | payer BC | END 2020-05-07 23:59 | disposition home or self-care (01) | LOC: CARD DIAG 13:46 | PROVIDERS: ATTEND Nurse Practitioner Family | DX: I25.10 Atherosclerotic heart disease of native coronary artery without angina pectoris (principal); I34.0 Nonrheumatic mitral (valve) insufficiency | CPT/HCPCS: 93306 ==

== ENCOUNTER 2020-05-08 07:13 | Outpatient (CLI) | payer BC ==
[2020-05-08 08:18] LABS: ALANINE AMINOTRANSFERASE 40 U/L (12-78); ALBUMIN/GLOBULIN RATIO 1.2 (1.1-1.5); ALKALINE PHOSPHATASE 41 IU/L (46-116); ANION GAP 9 (8-16); ASPARTATE AMINO TRANSFERASE 25 U/L (10-37); BILIRUBIN,DIRECT 0.1 MG/DL (0-0.3); BILIRUBIN,TOTAL 0.3 MG/DL (0.1-1.0); BLOOD UREA NITROGEN 22 MG/DL (7-18); BUN/CREATININE RATIO 31.4 (6.6-38.0); CALCIUM 9.1 MG/DL (8.5-10.1); CHLORIDE 103 MMOL/L (99-107); CHOL/HDL RATIO 3.4 (0.00-4.99); CHOLESTEROL 154 MG/DL (0-200); GLUCOSE 116 MG/DL (70-104); HDL CHOLESTEROL 45 MG/DL (35-60); LDL CHOLESTEROL 85 MG/DL (50-100); POTASSIUM 4.3 MMOL/L (3.5-5.1); SODIUM 139 MMOL/L (135-145); TOTAL CARBON DIOXIDE 27.5 MMOL/L (24-32); TOTAL PROTEIN 7.4 G/DL (6.4-8.2); TRIGLYCERIDES 186 MG/DL (20-135); eGFR 85 ML/MIN
== END 2020-05-08 23:59 | disposition home or self-care (01) ==
LOC: LAB 07:13
PROVIDERS: ATTEND Internal Medicine Interventional Cardiology
DX: I25.10 Atherosclerotic heart disease of native coronary artery without angina pectoris (principal); I05.9 Rheumatic mitral valve disease, unspecified; I10 Essential (primary) hypertension; E78.5 Hyperlipidemia, unspecified; I48.0 Paroxysmal atrial fibrillation
CPT/HCPCS: 36415; 80053; 80061; 82248; 83880

== ENCOUNTER 2020-05-08 07:15 | Outpatient (CLI) | payer BC ==
[2020-05-08 07:52] LABS: BASOPHILS % (AUTO) 0.9 % (0-1); EOSINOPHILS # (AUTO) 0.1 X10'3 (0-0.9); EOSINOPHILS % (AUTO) 3.1 % (0-6); HEMATOCRIT 42.2 % (35.0-45.0); HEMOGLOBIN 14.1 g/dl (12.0-16.0); LYMPHOCYTES % (AUTO) 43.5 % (21-51); MEAN CORPUSCULAR HEMOGLOBIN 30.6 PG (27.0-31.0); MEAN CORPUSCULAR HGB CONC 33.5 g/dL (33.0-36.5); MEAN CORPUSCULAR VOLUME 91.3 FL (78-98); MEAN PLATELET VOLUME 7.8 FL (7.4-10.4); MONOCYTES # (AUTO) 0.4 X10'3 (0-0.9); MONOCYTES % (AUTO) 8.2 % (2-12); NEUTROPHILS # (AUTO) 2.1 X10'3 (1.8-7.7); NEUTROPHILS % (AUTO) 44.3 % (42-75); PLATELET COUNT 276 X10'3 (140-440); RED BLOOD COUNT 4.62 X10'6 (4.20-5.60); RED CELL DISTRIBUTION WIDTH 13.5 % (11.5-14.5); WHITE BLOOD COUNT 4.7 X10'3 (4.5-11.0)
[2020-05-08 08:13] LABS: CHOL/HDL RATIO 3.5 (0.00-4.99); CHOLESTEROL 156 MG/DL (0-200); HDL CHOLESTEROL 45 MG/DL (35-60); LDL CHOLESTEROL 85 MG/DL (50-100); TRIGLYCERIDES 183 MG/DL (20-135)
== END 2020-05-08 23:59 | disposition home or self-care (01) ==
LOC: LAB 07:15
PROVIDERS: ATTEND Family Medicine
DX: E78.5 Hyperlipidemia, unspecified (principal); R21 Rash and other nonspecific skin eruption
CPT/HCPCS: 36415; 80061; 85025; 85651; 86038

== ENCOUNTER 2020-05-12 07:56 | Outpatient (CLI) | payer BC ==
[~2020-05-12] VITALS: Ht 162.6 cm; Wt 82.0 kg
[2020-05-12] VITALS (7 sets, daily range): BP systolic 115–131; BP diastolic 67–77
[2020-05-12] MEDS ORDERED: regadenoson 0.4mg/5ml syringe IV ONE (08:15)
[2020-05-12] MEDS ORDERED: nitroGLYCERIN 0.4mg SUBLingual tab SL PRN (08:15)
[2020-05-12] MEDS ORDERED: aminophylline 250mg/10ml inj. IV PRN (08:15)
[2020-05-12] MEDS ORDERED: normal saline 500ml IV soln 500 ML IV ONE (08:15)
== END 2020-05-12 23:59 | disposition home or self-care (01) ==
LOC: RAD 07:56
PROVIDERS: ATTEND Internal Medicine Interventional Cardiology
DX: I25.10 Atherosclerotic heart disease of native coronary artery without angina pectoris (principal)
CPT/HCPCS: 78452; 93017; A9500; J0280; J2785; J7040

== ENCOUNTER 2020-06-04 07:50 | Outpatient (CLI) | payer BC | END 2020-06-04 23:59 | disposition home or self-care (01) | LOC: RAD 07:50 | PROVIDERS: ATTEND Family Medicine | DX: M47.816 Spondylosis without myelopathy or radiculopathy, lumbar region (principal); M48.07 Spinal stenosis, lumbosacral region | CPT/HCPCS: 72148 ==

== ENCOUNTER 2020-11-19 08:44 | Day surgery (SDC) | payer BC ==
[2020-11-19 08:53] VITALS: BP 147/103
[2020-11-19] MEDS ORDERED: fentaNYL/PF 50MCG/1 ML 2ML syringe ONE (09:08)
[2020-11-19] MEDS ORDERED: MIDAZolam 1 MG/ML 5ML VIAL ONE (09:09)
[2020-11-19 10:40] VITALS: BP 117/85
[2020-11-19 10:50] VITALS: BP 129/78
[2020-11-19 11:00] VITALS: BP_SYST 127; BP_SYST 129; BP_DIAS 73; BP_DIAS 80
[2020-11-19 11:10] VITALS: BP 129/80
== END 2020-11-19 11:17 | disposition home or self-care (01) ==
LOC: GI LAB 08:44
PROVIDERS: ATTEND Internal Medicine Gastroenterology
DX: Z12.11 Encounter for screening for malignant neoplasm of colon (principal); K57.30 Diverticulosis of large intestine without perforation or abscess without bleeding; K63.89 Other specified diseases of intestine; Z72.89 Other problems related to lifestyle; Z87.891 Personal history of nicotine dependence; Z79.899 Other long term (current) drug therapy; Z80.0 Family history of malignant neoplasm of digestive organs
CPT/HCPCS: 45378; 99152; 99153; J2250; J3010; J7040; Z7512; A4620

== ENCOUNTER 2020-12-22 08:36 | Outpatient (CLI) | payer BC ==
[~2020-12-22 08:36] MED LIST changes: -HYDR-3686 PO
[2020-12-22 09:50] LABS: BASOPHILS % (AUTO) 0.9 % (0-1); EOSINOPHILS # (AUTO) 0.1 X10'3 (0-0.9); EOSINOPHILS % (AUTO) 2.5 % (0-6); HEMATOCRIT 43.3 % (35.0-45.0); HEMOGLOBIN 14.4 g/dl (12.0-16.0); LYMPHOCYTES # (AUTO) 2.1 X10'3 (1.1-4.8); LYMPHOCYTES % (AUTO) 37.3 % (21-51); MEAN CORPUSCULAR HEMOGLOBIN 30.6 PG (27.0-31.0); MEAN CORPUSCULAR HGB CONC 33.2 g/dL (33.0-36.5); MEAN CORPUSCULAR VOLUME 92.3 FL (78-98); MEAN PLATELET VOLUME 7.6 FL (7.4-10.4); MONOCYTES # (AUTO) 0.4 X10'3 (0-0.9); MONOCYTES % (AUTO) 6.9 % (2-12); NEUTROPHILS % (AUTO) 52.4 % (42-75); PLATELET COUNT 282 X10'3 (140-440); RED BLOOD COUNT 4.68 X10'6 (4.20-5.60); RED CELL DISTRIBUTION WIDTH 13.6 % (11.5-14.5); WHITE BLOOD COUNT 5.7 X10'3 (4.5-11.0)
[2020-12-22 11:09] LABS: ALANINE AMINOTRANSFERASE 41 U/L (12-78); ALBUMIN 3.8 G/DL (3.4-5.0); ALBUMIN/GLOBULIN RATIO 1.1 (1.1-1.5); ALKALINE PHOSPHATASE 68 IU/L (46-116); ANION GAP 11 (8-16); ASPARTATE AMINO TRANSFERASE 27 U/L (10-37); BILIRUBIN,TOTAL 0.3 MG/DL (0.1-1.0); BLOOD UREA NITROGEN 15 MG/DL (7-18); BUN/CREATININE RATIO 22.1 (6.6-38.0); CALCIUM 8.8 MG/DL (8.5-10.1); CHLORIDE 106 MMOL/L (99-107); CHOL/HDL RATIO 4.2 (0.00-4.99); CHOLESTEROL 186 MG/DL (0-200); CREATININE 0.68 MG/DL (0.40-0.90); GLUCOSE 99 MG/DL (70-104); HDL CHOLESTEROL 44 MG/DL (35-60); LDL CHOLESTEROL 97 MG/DL (50-100); POTASSIUM 4.4 MMOL/L (3.5-5.1); SODIUM 144 MMOL/L (135-145); TOTAL CARBON DIOXIDE 27.3 MMOL/L (24-32); TOTAL PROTEIN 7.2 G/DL (6.4-8.2); TRIGLYCERIDES 254 MG/DL (20-135); eGFR 88 ML/MIN
== END 2020-12-22 23:59 | disposition home or self-care (01) ==
LOC: LAB 08:36
PROVIDERS: ATTEND Family Medicine
DX: Z00.01 Encounter for general adult medical examination with abnormal findings (principal)
CPT/HCPCS: 36415; 80053; 80061; 84439; 84443; 85025

== ENCOUNTER 2020-12-22 08:51 | Outpatient (CLI) | payer BC ==
[2020-12-22 09:48] LABS: UA COLLECTION TYPE CLN CATCH MIDSTREAM
[2020-12-22 09:49] LABS: CLARITY,URINE CLEAR (Clear); COLOR,URINE YELLOW (Yellow); GLUCOSE, URINE NEGATIVE (Neg); KETONES,URINE NEGATIVE (Neg); NITRITES, URINE NEGATIVE (Neg); OCCULT BLOOD,URINE NEGATIVE (Neg); PROTEIN,URINE NEGATIVE (Neg)
[2020-12-22 09:50] LABS: LEUKOCYTE ESTERASE ,URINE NEGATIVE (Neg); UROBILINOGEN,URINE 0.2 E.U/dL (0.2-1.0)
[2020-12-22 10:02] LABS: PARTIAL THROMBOPLASTIN TIME 28 SECONDS (22-32)
== END 2020-12-22 23:59 | disposition home or self-care (01) ==
LOC: LAB 08:51
PROVIDERS: ATTEND Neurological Surgery
DX: M43.16 Spondylolisthesis, lumbar region (principal); M51.36 Other intervertebral disc degeneration, lumbar region; M25.78 Osteophyte, vertebrae; G47.30 Sleep apnea, unspecified; M79.605 Pain in left leg; I51.9 Heart disease, unspecified; Z01.89 Encounter for other specified special examinations
CPT/HCPCS: 36415; 71046; 72110; 81003; 85610; 85730; 93005

== ENCOUNTER 2021-04-16 11:56 | Outpatient (CLI) | payer BC | END 2021-04-16 23:59 | disposition home or self-care (01) | LOC: RAD 11:56 | PROVIDERS: ATTEND Neurological Surgery | DX: M41.86 Other forms of scoliosis, lumbar region (principal); M25.78 Osteophyte, vertebrae; M43.16 Spondylolisthesis, lumbar region | CPT/HCPCS: 72110 ==